=== PATIENT | female | born 1980 | race Caucasian/White ===

== ENCOUNTER → 2021-03-07 | Day surgery (SDC) | payer BC ==
[~2021-03-07] MED LIST: COLACE100 MG PO; CYANOCOBAL1000 MCG/1 INJ; FERREX 150150 MG PO; IBUPROFEN800 MG PO; PERCOCET 5/325 T1 EA PO; VITAMIN D21250 MCG PO
[2021-03-07 11:13] LABS: HEMOGLOBIN 11.6 gm/dl (12.3-15.3); RED BLOOD COUNT 4.96 M/UL (4.00-5.10); WHITE BLOOD COUNT 4.4 K/UL (4.5-11.0)
== END | disposition home or self-care (01) ==
LOC: OR 07:30
PROVIDERS: Obstetrics & Gynecology
DX: D25.9 Leiomyoma of uterus, unspecified (principal); N84.0 Polyp of corpus uteri; K58.9 Irritable bowel syndrome, unspecified; Z79.899 Other long term (current) drug therapy
CPT/HCPCS: 81001; 84702; 85025; J0690; J1100; J1885; J2001; J2250; J2405; J2704; J3010; J7030; J7120